=== PATIENT | male | born 1965 ===

== ENCOUNTER → 2017-11-29 | Outpatient (CLI) | payer BC ==
[~2017-11-29] MED LIST: AMI25 PO; AMIT-106 PO; BUPR-134 PO; CHOL100058 PO; CYC10 PO; DOCU100T19 PO; GABA-549 PO; HYDR-385 PO; HYDR-389 PO; HYDR2TAB74 PO; LOR75 PO; LOSA100T67 PO; LOSA50TA72 PO; METO25TA23 PO; MIRT7.5T2 PO; PROM-110 PO; TAMS0.4C25 PO
--- NOTE | 2017-11-29 13:52 | RADIOLOGY IMAGING REPORT ---
[place] [facility] [place] Saulo Prince : 1965 MR: [id number] V: [id number] EXAM DATE: ORDERING PHYSICIAN: NINA LORENZO TECHNOLOGIST: Location: [facility] Patient: Saulo Prince : 1965 Visit/Account:[id number] Date of Sevice: 11/29/2017 ABDOMEN PELVIS ESWL CYSTO W/O HISTORY: History of kidney stones, abdomen pain TECHNIQUE: Axial images acquired through the abdomen/pelvis. Coronal and sagittal reformatting also performed. No IV contrast administered. Dose Lowering Technique One of the following dose optimization techniques was utilized in the performance of this exam: Autom ated exposure control; adjustment of the mA and/or kV according to the patient's size; or use of an i terative reconstruction technique. Specific details can be referenced in the facility's radiology C T exam operational policy. COMPARISON: September 13, 2017 FINDINGS: Visualized lung bases: Negative. Hepatobiliary: The liver is incompletely imaged. Of the visualized liver there is severe diffuse he patic steatosis. There are also postsurgical changes from a cholecystectomy. Spleen: Mild splenomegaly similar to the prior study Adrenals: Negative. Pancreas: Negative. Kidneys ureters and bladder: There are two 1 mm nonobstructing calculi in lower pole calyces of the l eft kidney. . There is a 1 mm nonobstructing calculus in lower pole calyx of the right kidney. Ther e is no evidence of hydronephrosis or hydroureter Genitalia: Negative. GI: Negative. Vessels/spaces/nodes: Negative. Bones/soft tissues: Mild levoconvex scoliosis of the lumbar spine. Additional findings: None pertinent. IMPRESSION: There are tiny nonobstructing calculi in the renal collecting systems bilaterally with no evidence of hydronephrosis or hydroureter Mild splenomegaly unchanged Hepatomegaly with severe diffuse hepatic steatosis Report Dictated By: Emily Chan MD at 11/29/2017 1:43 PM Report E-Signed By: Emily Chan MD at 11/29/2017 1:49 PM WSN:[email or web address]
== END ==
LOC: CT 00:52
PROVIDERS: ATTEND Urology
DX: N20.0 Calculus of kidney (principal); K76.0 Fatty (change of) liver, not elsewhere classified; R16.1 Splenomegaly, not elsewhere classified; Z90.49 Acquired absence of other specified parts of digestive tract
CPT/HCPCS: 74176

== ENCOUNTER → 2018-02-28 | Outpatient (CLI) | payer BC ==
[~2018-02-28] MED LIST changes: +CLOB15OI16 TP; +METR45CR10 TP
== END ==
LOC: LAB 16:02
PROVIDERS: ATTEND Nurse Practitioner
DX: D22.39 Melanocytic nevi of other parts of face (principal)
CPT/HCPCS: 88305; 88313; 88344

== ENCOUNTER 2018-04-24 14:28 | Outpatient (RCR) | payer BC ==
[2018-03-07 14:34] VITALS: BP 134/82
--- NOTE | 2018-03-08 19:10 | ONCOLOGY FOLLOW UP NOTE ---
EVENT DATE: March 07, 2018 REASON FOR FOLLOWUP Iron overload, H63D heterozygosity. INTERIM HISTORY returns to clinic for a follow-up visit today. He initially saw Dr. Hernandez here in the [facility]. That visit took place in June of 2017. At that time, recommendations had been made for laboratory workup, as well as therapeutic phlebotomy. Saulo reports that he had undergone several of these phlebotomies, but he had tolerated them very poorly. He initially felt "out of it" for about a week after the first phlebotomy, and with subsequent phlebotomies he was quite fatigued for at least two to three days afterwards. He is frustrated with his overall well-being. He has had ongoing back pain, which has been a chronic issue for him. He feels very tired. He reports no alcohol intake. He is here to discuss options for ongoing care, as well as results of recent laboratory studies. REVIEW OF SYSTEMS Otherwise negative, and all systems are reviewed. PAST MEDICAL HISTORY 1. Hypertension. 2. Hyperlipidemia. PAST SURGICAL HISTORY 1. In 2004, cholecystectomy. 2. Remote history of wisdom tooth extraction. CURRENT MEDICATIONS 1. Losartan. 2. Lortab. 3. Amitriptyline. 4. Vitamin D. 5. Metoprolol. ALLERGIES "MOST ANTIDEPRESSANTS" except amitriptyline. SOCIAL HISTORY Patient is with children. He reports no alcohol or tobacco use. There is no history of illicit drug use. FAMILY HISTORY There is a maternal cousin who of colorectal cancer. VITAL SIGNS Temperature is 98.0, blood pressure 134/82, heart rate is 99, respirations 16, oxygen saturation is 94% on room air. PHYSICAL EXAMINATION GENERAL: Patient is alert and oriented times three, in no apparent distress sitting in the exam room chair. HEENT: Exam reveals anicteric sclerae. His face is somewhat flushed. NEUROLOGIC: Exam is grossly nonfocal, although his gait is antalgic. EXTREMITIES: Exam reveals no edema, clubbing or cyanosis. There is no erythema or tenderness to palpation of the extremities. LABORATORY STUDIES From March 05, reveal total iron binding capacity of 326, serum iron 92, transferrin saturation 28%, serum ferritin 279. White blood cell count 7300 with normal differential, hemoglobin 16.3, hematocrit 48.5, platelet count 237, 000, MCV is 91.0. IMAGING None today. We did discuss, however, that a prior CT scan of the abdomen and pelvis performed in August of 2017 had revealed hepatomegaly and steatosis as well as mild splenomegaly. ASSESSMENT AND PLAN 1. Iron overload, H63D heterozygosity. I had a good visit with today. We spent time reviewing his prior laboratory studies, as well as management to date which has included therapeutic phlebotomy. Unfortunately he has not fared well with the phlebotomies, having rather severe fatigue for several days to a week afterward with each procedure. As discussed, he has made some progress in his overall iron status, now with a ferritin in the 200s, down substantially from before. He does have reserve in his hematocrit to undergo additional therapeutic phlebotomies, but I have asked him to hold off on this for the time being. I have recommended today that he go for additional peripheral blood workup. I do see previously that he did have a modest hypercalcemia, and he does have an elevated serum protein level. Therefore, I will ask him to go for a plasma cell dyscrasia workup, and I will plan to see him back in one month's time to discuss these results. In terms of further management for his iron overload, we certainly could consider having him undergo therapeutic phlebotomy of a half unit at a time to try to minimize the amount of fatigue he experiences after the procedures. He will give this some thought. We will discuss this further when I see him in one month. 2. Hepatomegaly, steatosis, mild splenomegaly. We discussed these findings today as well. I do think that re-imaging in the future would be reasonable now that his iron status is coming under better control. I have asked him to avoid Tylenol, and this will include his hydrocodone/acetaminophen pain medicine. He will discuss this further with Ms. Villarreal. ZACHARY
[2018-03-14 14:47] VITALS: BP 139/87
[2018-04-24 14:38] VITALS: BP 132/80
--- NOTE | 2018-04-25 17:07 | ONCOLOGY FOLLOW UP NOTE ---
EVENT DATE: April 24, 2018 REASON FOR FOLLOWUP Iron overload, H63D heterozygosity. INTERIM HISTORY returns to clinic for a follow-up visit today. He reports that he has been feeling about the same, basically at his baseline. He reports ongoing fatigue. He also relates an ongoing chronic pain which has not changed. He has not gone for any additional therapeutic phlebotomies. He had some additional laboratory studies checked in February, but some of these did not result appropriately. He is here to review these results and further recommendations for his elevated ferritin. REVIEW OF SYSTEMS Otherwise negative, and all systems were reviewed. PAST MEDICAL HISTORY 1. Hypertension. 2. Hyperlipidemia. PAST SURGICAL HISTORY 1. In 2004, cholecystectomy. 2. Remote history of wisdom tooth extraction. CURRENT MEDICATIONS 1. Acetaminophen/hydrocodone p.r.n. 2. Tylenol p.r.n. 3. Tamsulosin. 4. Clobetasol. 5. Metronidazole cream. 6. Amitriptyline. 7. Losartan. 8. Metoprolol. ALLERGIES No known drug allergies. VITAL SIGNS Temperature is 97.5, blood pressure 132/80, heart rate is 96, respirations 16, oxygen saturation is 95% on room air. Weight is 93.8 kg. PHYSICAL EXAMINATION GENERAL: Patient is alert and oriented times three, in no apparent distress sitting in the exam room chair. HEENT: Exam reveals anicteric sclerae. NEUROLOGIC: Exam is grossly nonfocal, and his gait is antalgic. SKIN: Exam reveals no concerning rash or lesion. The result of the physical exam is deferred for discussion. LABORATORY STUDIES From March 14, reveal normal quantitative immunoglobulins, a normal comprehensive metabolic panel with the exception of a slightly elevated AST at 40 and slightly elevated C-reactive protein at 1.3. Parathyroid hormone was 36. Erythrocyte sedimentation rate was 3. IMAGING None today. ASSESSMENT AND PLAN Concern for iron overload, H63D heterozygosity, hepatosplenomegaly. I had a good visit with today. We were joined for the entirety our today's visit by Terra, nurse practitioner, here at the [facility]. We spent time reviewing his laboratory studies, although there was not an SPEP or serum free light chain ratio drawn. This had been drawn for concerns for elevated protein. He now has a normal serum protein. Notably, his liver function tests have improved, but he remains with a modestly elevated AST. His CBC is unremarkable. We spent time today discussing that I would not necessarily anticipate a sole H63D heterozygous state would necessarily lead to a serum ferritin of greater than 800, and play an active role in the development of hepatosplenomegaly which was noted on past imaging. He does take hydrocodone/ Tylenol (usually two tabs in the morning), as well as two tablets of Tylenol No. 3 at night, but he reports never taking more than this. He adamantly denies that he drinks alcohol, and this discussion was frustrating to him today , I believe. As discussed with him, because he has done poorly with therapeutic phlebotomy in the past, he does have the option of doing a half unit therapeutic phlebotomy with each trip to [facility]. I would be curious about another underlying reason for his laboratory and imaging findings , however. I would like to discuss his situation further with Dannielle Villarreal. We did discuss the possibility of seeing a restaurant associate versus considering a liver biopsy. The patient reports that he is not particularly interested in having a liver biopsy performed, however. I have asked him to go to the lab for repeat studies today. I will tentatively plan to see him back in the next few months, pending my discussion with is primary care provider. ZACHARY
[2018-05-13] MEDS ORDERED: HYDR-389 PO (17:07)
[2018-05-13] MEDS ORDERED: AMIT-106 PO (17:07)
[2018-05-13] MEDS ORDERED: TAMS0.4C25 PO (17:22)
[2018-05-29] MEDS ORDERED: LOSA50TA72 PO (14:00)
== END 2018-06-04 ==
LOC: ONC 14:28
PROVIDERS: ATTEND Internal Medicine Hematology
DX: E83.119 Hemochromatosis, unspecified (principal); R53.83 Other fatigue; R16.2 Hepatomegaly with splenomegaly, not elsewhere classified; E88.89 Other specified metabolic disorders; M54.9 Dorsalgia, unspecified
CPT/HCPCS: 36415; 82040; 82247; 82310; 82374; 82435; 82565; 82784; 82947; 83883; 83970; 84075; 84132; 84155; 84160; 84165; 84295; 84450; 84460; 84520; 85651; 86140; 99212

== ENCOUNTER → 2018-06-27 | Outpatient (CLI) | payer BC ==
[2018-06-27 16:14] LABS: INR 0.97
[2018-06-27 16:23] LABS: PLATELET COUNT, AUTOMATED 222 K/uL (150-450)
== END ==
LOC: LAB 15:34
PROVIDERS: ATTEND Nurse Practitioner Family
DX: E78.5 Hyperlipidemia, unspecified (principal); I10 Essential (primary) hypertension; R94.5 Abnormal results of liver function studies; R79.89 Other specified abnormal findings of blood chemistry
CPT/HCPCS: 36415; 80074; 80320; 82040; 82103; 82105; 82150; 82247; 82310; 82374; 82390; 82435; 82465; 82565; 82728; 82784; 82947; 82977; 83036; 83516; 83540; 83550; 83690; 83718; 84075; 84132; 84155; 84295; 84450; 84460; 84478; 84520; 85025; 85610; 86038